=== PATIENT | female | born 1950 | race Caucasian/White ===

== ENCOUNTER 2018-10-14 22:51 | Emergency (ER) | payer MEDICARE, OTHER ==
[2018-10-14 23:27] LABS: #Basophils 0.1 thou/uL (0.0-0.2); #Eosinphils 0.1 thou/uL (0.0-0.7); #Monocytes 0.5 thou/uL (0.11-0.59); #Neutrophils 3.3 thou/uL (1.40-6.50); %Basophils 1.9 % (0.0-1.0); %Eosinophils 1.8 % (0.0-10.0); %Neutrophils 55.4 % (42.0-75.0); Hemoglobin 12.7 g/dL (12.0-16.0); Mean Corpuscular HGB CONC 32.7 g/dL (32.0-36.0); Mean Corpuscular Hemoglobin 28.8 pg (27.0-31.0); Mean Corpuscular Volume 88.3 fL (78.0-98.0); Mean Platelet Volume 7.5 fL (7.4-10.4); Platelet Count 259 thou/uL (130-400); RBC Distribution Width 12.4 % (11.5-14.5); Red Blood Cell (RBC) Count 4.39 mill/uL (4.20-5.40); White Blood Cell (WBC) Count 5.9 thou/uL (4.8-10.8)
[2018-10-14] MEDS ORDERED: Aspirin Chewable 81 MG TAB ONE (23:32)
[2018-10-14 23:35] LABS: ALT (SGPT) 22 U/L (8-55); AST (SGOT) 25 U/L (5-34); Albumin 4.3 g/dL (3.4-4.8); Alkaline Phosphatase 89 U/L (40-150); Anion Gap 16 mmol/L (10-20); BUN (Urea Nitrogen) 18 mg/dL (9.8-20.1); Bilirubin, Total 0.3 mg/dL (0.2-1.2); Calc. Creatinine Clearance 0 mL/min (70-130); Calcium 9.9 mg/dL (7.8-10.44); Carbon Dioxide 26 mmol/L (23-31); Chloride 104 mmol/L (98-107); Estimated GFR-MDRD 73; Globulin 2.9 g/dL (2.4-3.5); Glucose 129 mg/dL (80-115); Lipase 16 U/L (8-78); Potassium 3.5 mmol/L (3.5-5.1); Protein, Total 7.2 g/dL (6.0-8.3); Sodium 142 mmol/L (136-145)
[2018-10-14] MEDS ORDERED: Famotidine In NaCl 20 mg/50 ml Premix Bag ONE (23:53)
[2018-10-14] MEDS ORDERED: Mag-Al Plus 1200 MG/1200 MG/120 MG/30 ML UDCUP ONE (23:53)
[2018-10-14] MEDS ORDERED: Lidocaine Viscous Sol 2% 15 ml UD Cup ONE (23:53)
--- NOTE | 2018-10-15 08:01 | RAD ---
PORTABLE CHEST: Date: 10-14-18 Comparison: 07-02-07 from [facility]. FINDINGS: The heart is normal in size. There is no vascular congestion, edema, or pleural effusion. No focal in filtrates were seen. A little bit of lingular scarring is probably present. IMPRESSION: No acute thoracic finding. POS: HOME
== END 2018-10-15 01:51 | disposition home or self-care (01) ==
LOC: BURERS 22:51
DX: R07.89 Other chest pain (principal); K21.9 Gastro-esophageal reflux disease without esophagitis; K22.4 Dyskinesia of esophagus; E78.5 Hyperlipidemia, unspecified; I10 Essential (primary) hypertension; Z79.899 Other long term (current) drug therapy
CPT/HCPCS: 71045; 80053; 83690; 84484; 85025; 93005; 94760; 96365

== ENCOUNTER 2018-12-09 15:37 | Outpatient (CLI) | payer MEDICARE, OTHER ==
--- NOTE | 2018-12-09 20:43 | RAD ---
LUMBAR SPINE THREE VIEWS: 12/09/18 No fracture or dislocation was seen. There may be some minor disc space narrowing at L2-L3 but the d isc spaces are otherwise unremarkable. Degenerative changes are very minimal for age. Some faint alisha cification is seen in the aorta. The SI joints appear normal. The visible portions of the bony pelvis appear intact. A small subcentimeter calcification is seen in the left upper quadrant overlying the left kidney. It could be a renal calculus, but could just as easily be a calcified node or other benign finding. IMPRESSION: No acute traumatic changes. POS: HOME
--- NOTE | 2018-12-09 20:44 | RAD ---
LEFT HIP TWO VIEWS: 12/09/18 No fracture or dislocation was seen. The joint space is normal in width and the articular surfaces ar e smooth. The adjacent pubic ring appears intact. IMPRESSION: No acute findings. POS: HOME
== END 2018-12-09 15:38 | disposition home or self-care (01) ==
LOC: BURRAD 15:37
PROVIDERS: ATTEND Nurse Practitioner
DX: W19.XXXA Unspecified fall, initial encounter (principal)
CPT/HCPCS: 72100